=== PATIENT | female | born 1960 | race Caucasian/White ===

== ENCOUNTER 2019-12-04 11:40 | Emergency (ER) | payer SELFPAY ==
[~2019-12-04] VITALS: Ht 157.5 cm; Wt 63.5 kg
[2019-12-04 12:11] VITALS: BP 149/80
--- NOTE | 2019-12-04 12:17 | NUR ---
TRIAGE COMPLETE. VSS. RETURNED TO LOBBY TO WAIT FOR BED IN ED.
--- NOTE | 2019-12-04 13:33 | NUR ---
Patient ambulated to chair C. RN evaluating patient.
--- NOTE | 2019-12-04 13:40 | NUR ---
59/F TO ED WITH GENERALIZED ABDOMINAL PAIN OVER THE LAST DAY. REPORTS NAUSEA/VOMITTING. +PAIN ON PALPATION. NO REBOUND TENDERNESS. BOWEL SOUNDS ACTIVE X 4. NO OBVIOUS DISTENTION NOTED. IN FAST TRACK CHAIR FOR MSE.
--- NOTE | 2019-12-04 13:44 | NUR ---
Dr. Fabian is evaluating the patient.
--- NOTE | 2019-12-04 14:00 | NUR ---
PT MOVED TO BED 6. PT COMPLAINED OF FEELING FAINT WITH BLOOD DRAW.
[2019-12-04 14:12] LABS: BASOPHILS # (AUTO) 0.1 K/uL (0.00-0.22); BASOPHILS % (AUTO) 0.6 % (0.0-2.0); EOSINOPHILS # (AUTO) 0.2 K/uL (0-0.4); EOSINOPHILS % (AUTO) 1.4 % (0.0-4.0); HEMOGLOBIN 15.6 g/dL (12.0-16.0); LYMPHOCYTES # (AUTO) 1.8 K/uL (2.5-16.5); LYMPHOCYTES % (AUTO) 14.8 % (20.5-51.1); MEAN CORPUSCULAR HEMOGLOBIN 29 pg (27-31); MEAN CORPUSCULAR HGB CONC 33 g/dL (33-37); MEAN CORPUSCULAR VOLUME 86.8 fL (80-94); MONOCYTES # (AUTO) 0.7 K/uL (0.8-1.0); MONOCYTES % (AUTO) 5.7 % (1.7-9.3); NEUTROPHILS # (AUTO) 9.6 K/uL (1.8-7.7); NEUTROPHILS % (AUTO) 77.5 % (42.2-75.2); PLATELET COUNT (AUTO) 246 K/uL (140-450); RED BLOOD CELL COUNT(AUTO) 5.41 MIL/uL (4.20-5.40); RED CELL DISTRIBUTION WIDTH 12.7 % (11.6-13.7); WHITE BLOOD COUNT (AUTO) 12.3 K/uL (4.8-10.8)
[2019-12-04 14:14] LABS: APPEARANCE,URINE CLEAR (CLEAR); BILIRUBIN,URINE NEGATIVE (NEGATIVE); BLOOD, URINE NEGATIVE (NEGATIVE); COLOR,URINE YELLOW (YELLOW); LEUKOCYTE ESTERASE ,URINE 1+ (NEGATIVE); NITRITE, URINE NEGATIVE (NEGATIVE); UGLUCOSE NEGATIVE (NEGATIVE)
[2019-12-04 14:27] LABS: RBC,URINE 0-5 /HPF (0-5)
[2019-12-04 15:05] LABS: ANION GAP 13.8 (8-16); CARBON DIOXIDE 28.5 mmol/L (21-32); CREATININE 0.7 mg/dL (0.6-1.3); POTASSIUM 4.3 mmol/L (3.5-5.1)
[2019-12-04 15:11] LABS: ALBUMIN 3.9 g/dL (3.4-5.0); TOTAL BILIRUBIN 0.6 mg/dL (0.0-1.0)
[2019-12-04 15:12] VITALS: BP 135/79
--- NOTE | 2019-12-04 15:12 | NUR ---
Patient discharged with v/s stable by Dr. Fabian. Written and verbal after care instructions given and explained. Rx of Macrobid given. Patient educated on indication of medication including possible reaction and side effects. Opportunity to ask questions provided and answered.
--- NOTE | 2019-12-07 17:23 | NUR ---
LATE ENTRY-- POSITIVE URINE CULTURE RESULTS SHOWN TO DR MICHEL. NO NEW ORDERS RECIEVED.
== END 2019-12-04 15:12 | disposition home or self-care (01) ==
LOC: MED 11:40
DX: N39.0 Urinary tract infection, site not specified (principal); E11.9 Type 2 diabetes mellitus without complications; R11.2 Nausea with vomiting, unspecified
CPT/HCPCS: 36415; 80053; 81001; 82948; 85025; 87086; 87186; 99283

== ENCOUNTER 2023-06-27 13:08 | Observation (INO) | payer OTHER ==
[~2023-06-27] VITALS: Ht 157.5 cm; Wt 63.5 kg
[2023-06-27 13:18] VITALS: BP 112/67; PULSE 203; RESP 18; TEMP 97.6; O2SAT 99
--- NOTE | 2023-06-27 13:28 | NUR ---
63YO F BIB DAUGHTER PRESENTS W/SOB, DIZZINESS, NAUSEA, WEAK, NEAR SYNCOPY, SHAKY HANDS SINCE 12PM. PT DENIES FEVER, CHILLS, FLU SYMPTOMS, URINARY SYMPTOMS. PT STATES SHE WAS SEEN 3MTHS AGO AT [facility], DISCHARGED TO FOLLOW-UP WITH PCP. NAD NOTED, SAFETY MAINTAINED, CALL LIGHT WITHIN REACH. HX: DM, HTN, CHOLESTEROL, GALLSTONES, ARTHRITIS NKA
--- NOTE | 2023-06-27 13:29 | NUR ---
TO ER 7
[2023-06-27] MEDS ORDERED: METOPROLOL 5 MG/5 ML VIAL IVP ONE (13:30)
--- NOTE | 2023-06-27 13:31 | NUR ---
X-RAY AT BEDSIDE
[2023-06-27] MEDS ORDERED: NACL 0.9% 1,000 ML IV ONE ×2 (13:45→13:55)
[2023-06-27 13:46] LABS: BASOPHILS # (AUTO) 0.1 K/uL (0.00-0.22); BASOPHILS % (AUTO) 0.6 % (0.0-2.0); EOSINOPHILS # (AUTO) 0.2 K/uL (0-0.4); EOSINOPHILS % (AUTO) 2.2 % (0.0-4.0); HEMATOCRIT 40.4 % (36-48); LYMPHOCYTES # (AUTO) 3.1 K/uL (2.5-16.5); MEAN CORPUSCULAR HEMOGLOBIN 30 pg (27-31); MEAN CORPUSCULAR HGB CONC 35 g/dL (33-37); MEAN CORPUSCULAR VOLUME 85.4 fL (80-94); MONOCYTES # (AUTO) 0.8 K/uL (0.8-1.0); MONOCYTES % (AUTO) 8.4 % (1.7-9.3); NEUTROPHILS # (AUTO) 5.4 K/uL (1.8-7.7); NEUTROPHILS % (AUTO) 56.8 % (42.2-75.2); PLATELET COUNT (AUTO) 267 K/uL (140-450); RED BLOOD CELL COUNT(AUTO) 4.73 MIL/uL (4.20-5.40); RED CELL DISTRIBUTION WIDTH 13.3 % (11.6-13.7); WHITE BLOOD COUNT (AUTO) 9.6 K/uL (4.8-10.8)
[2023-06-27 13:59] LABS: ALBUMIN 4.3 g/dL (3.4-5.0); ANION GAP 14.6 (8-16); CARBON DIOXIDE 26.9 mmol/L (21-32); CREATININE 0.6 mg/dL (0.6-1.3); POTASSIUM 3.5 mmol/L (3.5-5.1); TOTAL BILIRUBIN 0.6 mg/dL (0.0-1.0)
--- NOTE | 2023-06-27 14:08 | NUR ---
pt came in to triage complaining of sob, pt was in interment svt 200's pt taken to bed 7 place on heart monitor and ekg performed by emt judy, md hebert funk arrived to bedside to speak with pt
[2023-06-27 14:18] LABS: PROTHROMBIN TIME 10.4 secs (10.8-13.4)
[2023-06-27 14:42] LABS: FREE T4 (FREE THYROXINE) 1.24 ng/dL (0.76-1.46); MAGNESIUM 1.8 mg/dL (1.8-2.4); THYROID STIMULATING HORMONE 1.95 uIU/mL (0.34-3.74)
[2023-06-27] MEDS ORDERED: ACETAMINOPHEN 325 MG TAB PO PRN (15:05)
[2023-06-27] MEDS ORDERED: POTASSIUM CHLORIDE 10 MEQ TABER PO PRN (15:05)
[2023-06-27] MEDS ORDERED: MORPHINE SULFATE 2 MG/ML SYR IVP PRN (15:05)
[2023-06-27] MEDS ORDERED: MAGNESIUM OXIDE 400 MG TAB PO PRN (15:05)
[2023-06-27] MEDS ORDERED: KCL 20 MEQ IN 100 mL PREMIX 200 ML IV PRN (15:05)
[2023-06-27] MEDS ORDERED: HYDROcodone/APAP 5/325 MG 1 TAB TAB PO PRN (15:05)
[2023-06-27] MEDS ORDERED: MAG SULF 2000 MG/WATER PREMIX 50 ML IV PRN (15:05)
[2023-06-27] MEDS ORDERED: INSULIN LISPRO SLIDING SCALE 100 UNITS/ML VIAL SUBQ PRN (15:15)
[2023-06-27] MEDS ORDERED: DEXTROSE 50% 50 ML SYR IVP PRN (15:15)
[2023-06-27 15:22] VITALS: O2SAT 98
[2023-06-27 15:36] VITALS: O2SAT 98
--- NOTE | 2023-06-27 15:45 | NUR ---
RECEIVED REPORT FROM ER NURSE LAUREL FOR CONTINUITY OF CARE. PT STABLE UPON TRANSPORT WITH NO SIGNS OF DISTRESS. PT IS A&OX4, AMBULATES ON OWN, VITALS WNL AT THIS TIME, SKIN INTACT, ROOM AIR AND ON A CARDIAC DIET. PT HAS AN 18G IV IN HER LAC THAT IS PATENT AND SALINE LOCKED. ALL SAFETY MEASURES IN PLACE INCLUDING BED IN LOW POSITION AND CALL LIGHT WITHIN REACH. CONTINUATION OF CARE AT THIS TIME.
[2023-06-27] MEDS: BLOOD GLUCOSE MONITORING 1 DEV DEV FS SCH ×2 (17:06→21:05)
[2023-06-27] MEDS ORDERED: LISI5TAB18 PO (17:26)
[2023-06-27] MEDS ORDERED: METF-713 PO (17:26)
[2023-06-27] MEDS ORDERED: ASPI-1822 PO (17:26)
[2023-06-27] MEDS ORDERED: METO25TE2 PO (17:26)
[2023-06-27] MEDS ORDERED: ATOR20TA PO (17:26)
--- NOTE | 2023-06-27 17:30 | NUR ---
PT ADMIT TO TELEMETRY FLOOR BY LAUREL ELLIOTT
--- NOTE | 2023-06-27 17:30 | NUR ---
The patient's care was reviewed and supervised by Katie Rome, RN, RN.
[2023-06-27 17:45] VITALS: BP 121/65; PULSE 71; PULSE 74; PULSE 77; RESP 18; TEMP 97.8; O2SAT 99
--- NOTE | 2023-06-27 19:21 | NUR ---
ENDORSED PT TO NEGATIVE TURNER NURSE FOR CONTINUITY OF CARE. PT STABLE AT THIS TIME.
[2023-06-27] MEDS ORDERED: METOPROLOL 5 MG/5 ML VIAL IVP PRN (19:30)
[2023-06-27 20:00] VITALS: BP 105/60; PULSE 113; PULSE 74; RESP 15; TEMP 97.2; O2SAT 98
[2023-06-27] MEDS ORDERED: ATORVASTATIN 20 MG TAB PO SCH (21:00)
[2023-06-27] MEDS: METOPROLOL 25 MG TAB PO SCH (21:07)
[2023-06-28] VITALS: BP 98/61; PULSE 56; PULSE 59; RESP 16; TEMP 97.5; O2SAT 97
[2023-06-28 04:00] VITALS: BP 97/53; PULSE 55; PULSE 58; TEMP 96.8; O2SAT 97
[2023-06-28] MEDS: BLOOD GLUCOSE MONITORING 1 DEV DEV FS SCH ×3 (06:29→16:33)
[2023-06-28 06:39] LABS: BASOPHILS % (AUTO) 0.6 % (0.0-2.0); EOSINOPHILS # (AUTO) 0.2 K/uL (0-0.4); EOSINOPHILS % (AUTO) 2.8 % (0.0-4.0); HEMATOCRIT 37.8 % (36-48); LYMPHOCYTES # (AUTO) 2.3 K/uL (2.5-16.5); LYMPHOCYTES % (AUTO) 29.6 % (20.5-51.1); MEAN CORPUSCULAR HEMOGLOBIN 30 pg (27-31); MEAN CORPUSCULAR HGB CONC 34 g/dL (33-37); MEAN CORPUSCULAR VOLUME 86.5 fL (80-94); MONOCYTES # (AUTO) 0.6 K/uL (0.8-1.0); NEUTROPHILS # (AUTO) 4.5 K/uL (1.8-7.7); PLATELET COUNT (AUTO) 242 K/uL (140-450); RED BLOOD CELL COUNT(AUTO) 4.37 MIL/uL (4.20-5.40); WHITE BLOOD COUNT (AUTO) 7.6 K/uL (4.8-10.8)
[2023-06-28 06:53] LABS: ALBUMIN 3.5 g/dL (3.4-5.0); ANION GAP 10.9 (8-16); CARBON DIOXIDE 28.5 mmol/L (21-32); CREATININE 0.6 mg/dL (0.6-1.3); MAGNESIUM 1.8 mg/dL (1.8-2.4); POTASSIUM 4.4 mmol/L (3.5-5.1); TOTAL BILIRUBIN 0.7 mg/dL (0.0-1.0)
--- NOTE | 2023-06-28 07:10 | NUR ---
RECEIVED REPORT FROM ENGINEER STATION MAINLINE NURSE FOR CONTINUITY OF CARE. PT STABLE AT THIS TIME.
[2023-06-28 08:00] VITALS: BP 103/63; PULSE 51; PULSE 52; RESP 18; TEMP 96.8; O2SAT 98
--- NOTE | 2023-06-28 08:43 | NUR ---
PATIENT HAS BEEN SCREENED AND CATEGORIZED LOW NUTRITION RISK. PATIENT WILL BE SEEN WITHIN 7 DAYS OF ADMISSION. 07/04/[address]
[2023-06-28] MEDS: METOPROLOL 25 MG TAB PO SCH (08:48)
[2023-06-28] MEDS ORDERED: lisinopriL 5 MG TAB PO SCH (09:00)
[2023-06-28] MEDS ORDERED: ENOXAPARIN 40 MG/0.4 ML SYR SUBQ SCH (09:00)
[2023-06-28] MEDS ORDERED: ASPIRIN 81 MG TAB.CHEW PO SCH (09:00)
--- NOTE | 2023-06-28 11:50 | NUR ---
PT IS RESTING IN BED WITH HER EYES CLOSED AND CALL LIGHT NEXT TO HER. NO SIGNS OF DISTRESS.
[2023-06-28 12:00] VITALS: BP 101/56; PULSE 57; PULSE 68; RESP 18; TEMP 96.6; O2SAT 98
[2023-06-28] MEDS ORDERED: DILT120C95 PO (15:29)
[2023-06-28 16:00] VITALS: BP 120/81; PULSE 94; RESP 18; TEMP 97; O2SAT 100
--- NOTE | 2023-06-28 16:17 | NUR ---
RECEIVED ORDER FOR PATIENT TO GET OUT PATIENT EP REFERRAL FAXED ALL PAPERWORK TO [facility].
[2023-06-28 16:52] VITALS: BP 101/56; PULSE 68; RESP 18; TEMP 96.6
[2023-06-29] MEDS ORDERED: DILTIAZEM 120 MG CAPER PO SCH (09:00)
== END 2023-06-28 17:13 | disposition home or self-care (01) ==
LOC: MED 13:08 → MTU 15:07
PROVIDERS: ADMIT Internal Medicine; ATTEND Internal Medicine
DX: I47.1 Supraventricular tachycardia (principal); E11.9 Type 2 diabetes mellitus without complications; I10 Essential (primary) hypertension; E78.5 Hyperlipidemia, unspecified; Z79.899 Other long term (current) drug therapy
CPT/HCPCS: 36415; 71045; 80053; 82948; 83735; 83880; 84439; 84443; 84484; 85025; 85610; 85730; 87081; 93005; 96361; 96372; 96374; 99285; C8929; G0378; J1650; J1815; J3490; Q0092